=== PATIENT | male | born 1950 | race Caucasian/White ===

== ENCOUNTER 2020-04-18 11:00 | Outpatient (RCR) | payer MEDICARE, OTHER, SELFPAY | END 2020-04-18 11:50 | disposition home or self-care (01) | LOC: CHSSENLIFE 11:00 | PROVIDERS: PCP Internal Medicine; Visit Provider Psychiatry & Neurology Psychiatry | DX: F43.23 Adjustment disorder with mixed anxiety and depressed mood (principal); F01.50 Vascular dementia, unspecified severity, without behavioral disturbance, psychotic disturbance, mood disturbance, and anxiety | CPT/HCPCS: 90792; 90832; 90834; 90837; 99213; G0463 ==

== ENCOUNTER 2020-05-20 12:10 | Outpatient (CLI) | payer MEDICARE, SELFPAY | END 2020-05-20 12:11 | disposition home or self-care (01) | LOC: CHSLAB 12:12 | PROVIDERS: PCP Internal Medicine; Visit Provider Internal Medicine | DX: R19.7 Diarrhea, unspecified (principal) | CPT/HCPCS: 87045; 87046; 87324; 87427 ==

== ENCOUNTER 2020-06-06 10:37 | Outpatient (CLI) | payer MEDICARE, OTHER, SELFPAY ==
--- NOTE | ~2020-06-06 | XR_ITS ---
EXAMINATION: XR sacroiliac jt inj w imag BI DATE: 06/06/2020 12:06 INDICATION: Low back pain and bilateral hip pain. TECHNIQUE: A time-out was performed to verify the patient's name, date of , and procedure to b e performed. The procedure including the risks, benefits, and alternatives was discussed with the pat ient. Risks discussed included bleeding and infection. The patient understood the risks and agreed to proceed. Attention was first turned to the left sacroiliac joint. The skin overlying the left sacroi liac joint was prepped and draped in usual sterile fashion. Anesthetic was administered with 1% lido navin subcutaneously. A 22 G needle was advanced under fluoroscopic guidance into the joint. Inject ion of 0.6 mL of Omnipaque 240 confirmed intra-articular position of the needle. Subsequently, injec espinosa consisting of 5 mL of a 3:1:1 mixture of 1% lidocaine, 40 mg/mL Kenalog and 4 mg/mL dexamethason e for a total dose of 40 mg Kenalog and 4 mg dexamethasone was instilled. Washout of contrast was see n confirming intra-articular administration. The needle was removed and the entry site was cleaned an d dressed. Attention was then turned to the right sacroiliac joint. A 22 G needle was advanced under fluoroscopic guidance into the joint. Injection of 0.6 mL of Omnipaque 240 confirmed intra-articular position of the needle. Subsequently, injectate consisting of 5 mL of a 3:1:1 mixture of 1% lidocai ne, 40 mg/mL Kenalog and 4 mg/mL dexamethasone for a total dose of 40 mg Kenalog and 4 mg dexamethaso ne was instilled. Washout of contrast was seen confirming intra-articular administration. The needle was removed and the entry site was cleaned and dressed. There were no immediate complications. Fluoro scopy exposure time was 0.5 minutes. The total number of images was 7. FINDINGS: Real-time fluoroscopy demonstrates the needle in the bilateral sacroiliac joints. Patient's pain prior to procedure on both the left and right:8/10. Patient's pain following the procedure on both the left and right: 0/10. IMPRESSION: 1. Bilateral sacroiliac joint injections of local anesthetic and steroid with decrease in the patient 's presenting pain. The skin overlying the right sacroiliac joint was prepped and draped in usual mariya rile fashion. Reviewed, dictated and finalized at location A. IMPRESSION: 1. Bilateral sacroiliac joint injections of local anesthetic and steroid with d ecrease in the patient's presenting pain. The skin overlying the right sacroili ac joint was prepped and draped in usual sterile fashion.
== END 2020-06-06 10:38 | disposition home or self-care (01) ==
PROVIDERS: PCP Internal Medicine; Visit Provider Internal Medicine
DX: M54.5 Low back pain (principal); M25.551 Pain in right hip; M25.552 Pain in left hip; M53.3 Sacrococcygeal disorders, not elsewhere classified
CPT/HCPCS: 27096; G0260; J1100; J3301; Q9966

== ENCOUNTER 2020-09-07 12:24 | Outpatient (CLI) | payer MEDICARE, SELFPAY ==
[2020-09-07 12:38] LABS: Hematocrit 30.3 % (37.0-46.0); Hemoglobin 10.2 g/dL (12.4-15.3); Mean Corpuscular HGB Conc 33.7 g/dL (32.0-36.0); Mean Corpuscular Hemoglobin 31.6 pg (27.0-31.0); Mean Corpuscular Volume 93.8 fL (78.0-102.0); Mean Platelet Volume 8.8 fl (8.7-11.0); Platelet Count Result 104 K/mm3 (150-420); Red Blood Count 3.23 M/mm3 (4.70-6.10); Red Cell Distribution Width 15.1 % (11.6-14.4)
[2020-09-07 13:13] LABS: Add Urine Microscopic? NO; Appearance Urine Clear (Clear); Bilirubin Urine Negative (Negative); Blood Urine Negative (Negative); Color Urine Yellow (Yellow); Glucose Urine UA Negative (Negative); Ketones Urine Negative (Negative); Leukocyte Esterase Ur Negative LEU/UL (Negative); Nitrate Urine Negative (Negative); Protein Urine Negative (Negative); Specific Grav Ur 1.025 (1.010-1.020)
[2020-09-07 13:38] LABS: White Blood Count 1.3 K/mm3 (4.8-10.8)
[2020-09-07 13:56] LABS: Alanine Aminotransferase 23 U/L (16-63); Albumin Level 3.3 g/dL (3.4-5.0); Alkaline Phosphatase 165 U/L (46-116); Anion Gap 7 mmol/L (8-16); Aspartate Amino Transferase 48 U/L (15-37); Bilirubin,Total 0.6 mg/dL (0.00-1.00); Blood Urea Nitrogen 16 mg/dL (7-18); Calcium 9.3 mg/dL (8.5-10.1); Carbon Dioxide 28 mmol/L (21-32); Chloride 108 mmol/L (98-108); Cholesterol 153 mg/dL (0-200); Creatine Kinase 78 U/L (39-308); Estimated Glomerular Filt Rate > 60; Ferritin 37 ng/mL (26-388); Glucose 76 mg/dL (70-99); HDL Direct 75 mg/dL (40-60); Iron 65 ug/dL (65-175); LDL Cholesterol Calculated 60 mg/dL (<130); Osmolality Calculated 296 mOsm/kg (285-295); Prostate Specific Antigen 2.4 ng/mL (< OR = 4.0); Sodium 143 mmol/L (136-145); Total Protein 6.5 g/dL (6.4-8.2); Triglycerides 89 mg/dL (0-150)
[2020-09-07 13:58] LABS: Band Neutrophils Percent 0 % (0-6); Basophils Percent Manual 0 % (0-1); Eosinophils Absolute Manual 0.07 K/mm3 (0.02-0.5); Eosinophils Percent Manual 6 % (1-6); Lymphocytes Absolute Manual 0.57 K/mm3 (1.1-4.5); Lymphocytes Percent Manual 44 % (18-44); Monocytes Absolute Manual 0.23 K/mm3 (0.1-0.90); Monocytes Percent Manual 18 % (3-9); Neutrophils Absolute Manual 0.41 K/mm3 (1.3-6.7); Neutrophils Percent Manual 32 % (46-73); Platelet Estimate Decreased (Adequate)
== END 2020-09-07 12:25 | disposition home or self-care (01) ==
PROVIDERS: PCP Internal Medicine
DX: N40.0 Benign prostatic hyperplasia without lower urinary tract symptoms (principal); E78.5 Hyperlipidemia, unspecified; I10 Essential (primary) hypertension; E78.2 Mixed hyperlipidemia; D50.9 Iron deficiency anemia, unspecified
CPT/HCPCS: 36415; 80053; 80061; 81003; 82550; 82728; 83540; 84153; 85025

== ENCOUNTER 2023-01-16 14:19 | Outpatient (CLI) | payer MEDICARE, SELFPAY ==
[2023-01-16 14:44] LABS: Hemoglobin 10.4 g/dL (12.4-15.3); Immature Platelet Fraction Pct 0.9 % (1.0-7.0); Immature Reticulocyte Fraction 14.8 % (2.0-16.52); Mean Corpuscular HGB Conc 33.5 g/dL (32.0-36.0); Mean Corpuscular Hemoglobin 30.2 pg (27.0-31.0); Mean Corpuscular Volume 90.1 fL (78.0-102.0); Mean Platelet Volume 8.7 fl (8.7-11.0); Platelet Count Result 106 K/mm3 (150-420); Red Blood Count 3.44 M/mm3 (4.70-6.10); Red Cell Distribution Width 18.5 % (11.6-14.4); Reticulocyte Hemoglobin Conten 36.9 pg (28.0-35.0); Reticulocytes Absolute 0.06 M/mm3 (0.02-0.1)
[2023-01-16 14:57] LABS: White Blood Count 1.4 K/mm3 (4.8-10.8)
[2023-01-16 15:10] LABS: Alanine Aminotransferase 8 U/L (16-63); Alkaline Phosphatase 153 U/L (46-116); Ammonia 28 umol/L (11-32); Anion Gap 6 mmol/L (8-16); Aspartate Amino Transferase 56 U/L (15-37); Bilirubin,Total 0.6 mg/dL (0.00-1.00); Blood Urea Nitrogen 15 mg/dL (7-18); Calcium 8.7 mg/dL (8.5-10.1); Carbon Dioxide 26 mmol/L (21-32); Chloride 101 mmol/L (98-108); Estimated Glomerular Filt Rate > 60; Ferritin 116 ng/mL (26-388); Free T4 Free Thyroxine 1.13 ng/dL (0.76-1.46); Glucose 89 mg/dL (70-99); Iron 68 ug/dL (65-175); Osmolality Calculated 275 mOsm/kg (285-295); Potassium 3.6 mmol/L (3.5-5.1); Sodium 133 mmol/L (136-145); Thyroid Stimulating Hormone 2.28 uIU/mL (0.36-3.74); Total Protein 6.5 g/dL (6.4-8.2)
[2023-01-16 16:17] LABS: Band Neutrophils Percent 1 % (0-6); Neutrophils Absolute Manual 0.74 K/mm3 (1.3-6.7); Neutrophils Percent Manual 52 % (46-73); Total Cells Counted 100
[2023-01-16 16:18] LABS: Basophils Absolute Manual 0.02 K/mm3 (0-0.1); Basophils Percent Manual 2 % (0-1); Eosinophils Absolute Manual 0.02 K/mm3 (0.02-0.5); Eosinophils Percent Manual 2 % (1-6); Lymphocytes Absolute Manual 0.36 K/mm3 (1.1-4.5); Lymphocytes Percent Manual 26 % (18-44); Monocytes Absolute Manual 0.23 K/mm3 (0.1-0.90); Monocytes Percent Manual 17 % (3-9); Platelet Estimate Adequate (Adequate)
[2023-01-21 19:51] LABS: Alpha Fetoprotein Tumor Marker 2.3 ng/mL (<6.1)
== END 2023-01-16 14:20 | disposition home or self-care (01) ==
LOC: CHSLAB 14:23
PROVIDERS: PCP Internal Medicine; Visit Provider Internal Medicine
DX: D61.818 Other pancytopenia (principal); K74.69 Other cirrhosis of liver; G20 Parkinson's disease; E03.4 Atrophy of thyroid (acquired); D83.9 Common variable immunodeficiency, unspecified; K21.9 Gastro-esophageal reflux disease without esophagitis
CPT/HCPCS: 36415; 80053; 82105; 82140; 82728; 83540; 84439; 84443; 84481; 85025; 85046; 85055